=== PATIENT | male | born 1960 | race Caucasian/White ===

== ENCOUNTER 2021-07-30 11:11 | Outpatient (CLI) | payer MEDICARE, MEDICAID, SELFPAY ==
[2021-07-30 16:11] LABS: Basophils Absolute Auto 0.1 K/mm3 (0.0-0.1); Eosinophils Absolute Auto 0.4 K/mm3 (0-0.3); Eosinophils Percent Auto 3.5 % (0-4.4); Hemoglobin 13.9 g/dL (14.0-18.0); Immature Granulocyte Absolute 0.05 K/mm3 (0.00-0.031); Immature Granulocyte Percent A 0.4 % (0-0.5); Lymphocytes Absolute Auto 3.05 K/mm3 (0.9-3.2); Lymphocytes Percent Auto 26.1 % (18.3-44.2); Mean Corpuscular HGB Conc 31.6 g/dl (32-36); Mean Corpuscular Hemoglobin 27.4 pg (26-34); Mean Corpuscular Volume 86.8 fl (80-100); Mean Platelet Volume 11.4 fl (7.4-10.4); Monocytes Absolute Auto 1.2 K/mm3 (0.1-0.6); Monocytes Percent Auto 9.9 % (2.6-8.5); Neutrophils Absolute Auto 6.9 K/mm3 (1.3-6.7); Neutrophils Percent Auto 59.1 % (45.5-73.1); Platelet Count Result 330 k/mm3 (150-375); Red Blood Count 5.07 M/mm3 (4.6-6.20); Red Cell Distribution Width 14.1 % (11.5-14.5); White Blood Count 11.7 K/mm3 (4.5-10.0)
[2021-07-30 16:19] LABS: Alanine Aminotransferase 23 U/L (4-50); Albumin Level 4.5 g/dL (3.5-5.1); Alkaline Phosphatase 75 U/L (38-126); Anion Gap 11 mmol/L (8-16); Aspartate Amino Transferase 59 U/L (17-59); Bilirubin,Total 0.5 mg/dL (0.2-1.3); Blood Urea Nitrogen 19 mg/dL (9-20); Calcium 9.4 mg/dL (8.4-10.2); Carbon Dioxide 23 mmol/L (22-30); Chloride 103 mmol/L (98-107); Estimated Glomerular Filt Rate > 60; Glucose 194 mg/dL (65-110); Potassium 4.1 mmol/L (3.4-5.0); Sodium 137 mmol/L (137-145)
[2021-08-02 05:29] LABS: Triiodothyronine T3 Free 3.2 pg/mL (2.3-4.2)
== END 2021-07-30 11:12 | disposition home or self-care (01) ==
LOC: ANHWCLAB 11:15
PROVIDERS: PCP Family Medicine; Visit Provider Internal Medicine Endocrinology, Diabetes & Metabolism
DX: E11.9 Type 2 diabetes mellitus without complications (principal); E05.90 Thyrotoxicosis, unspecified without thyrotoxic crisis or storm; E04.9 Nontoxic goiter, unspecified
CPT/HCPCS: 36415; 80053; 84439; 84443; 84481; 85025

== ENCOUNTER 2022-07-01 14:43 | Observation (INO) | payer MEDICARE, MEDICAID, SELFPAY ==
[2022-07-01] VITALS (19 sets, daily range): BP systolic 109–150; BP diastolic 75–113; PULSE 61–188; RESP 10–21; TEMP 36.1–36.4; O2SAT 98–100; BMI 26.8
--- NOTE | ~2022-07-01 | XR_ITS ---
EXAMINATION: XR chest 2V DATE: 07/01/2022 15:30 INDICATION: Chest pain TECHNIQUE: PA and lateral views of the chest are obtained. COMPARISON: 01/29/2004 FINDINGS: The lungs are free of acute opacities. No pleural effusion or pneumothorax. The cardiomedia stinal silhouette is normal. There is moderate thoracic spondylosis. IMPRESSION: 1. No acute cardiopulmonary abnormality. Reviewed, dictated and finalized at location B. ATIONS OFFICER AFLOAT
--- NOTE | 2022-07-01 14:45 | ECG_ITS ---
Measurements Intervals [place] Rate: 188 P: [place]: 0 QRS: -61 QRSD: 92 T: 110 QT: 238 QTc: 421 Interpretive Statements ATRIAL FIBRILLATION WITH RAPID VENTRICULAR RESPONSE WITH ABERRANT CONDUCTION OR VENTRICULAR PREMATURE COMPLEXES LEFT ANTERIOR FASCICULAR BLOCK [QRS AXIS <= -45, QR IN I, RS IN II] NO PREVIOUS ECG AVAILABLE FOR COMPARISON Electronically Signed On 07-01-2022 15:40:22 STEEL FITTER by Mesfin Franklin M.D.
[2022-07-01 15:06] LABS: Basophils Absolute Auto 0.2 K/mm3 (0.0-0.1); Eosinophils Absolute Auto 0.3 K/mm3 (0-0.3); Eosinophils Percent Auto 2.2 % (0-4.4); Hematocrit 50.2 % (42.0-52.0); Hemoglobin 16.2 g/dL (14.0-18.0); Immature Granulocyte Absolute 0.07 K/mm3 (0.00-0.031); Immature Granulocyte Percent A 0.4 % (0-0.5); Lymphocytes Absolute Auto 4.36 K/mm3 (0.9-3.2); Lymphocytes Percent Auto 27.7 % (18.3-44.2); Mean Corpuscular HGB Conc 32.3 g/dl (32-36); Mean Corpuscular Hemoglobin 27.3 pg (26-34); Mean Corpuscular Volume 84.7 fl (80-100); Mean Platelet Volume 10.6 fl (7.4-10.4); Monocytes Absolute Auto 1.4 K/mm3 (0.1-0.6); Monocytes Percent Auto 9.1 % (2.6-8.5); Neutrophils Absolute Auto 9.4 K/mm3 (1.3-6.7); Neutrophils Percent Auto 59.6 % (45.5-73.1); Platelet Count Result 389 k/mm3 (150-375); Red Blood Count 5.93 M/mm3 (4.6-6.20); White Blood Count 15.8 K/mm3 (4.5-10.0)
[2022-07-01] MEDS: METOPROLOL TARTRATE INJ 5 MG/5 ML VIAL IV PUSH (15:09)
[2022-07-01] MEDS: ASPIRIN 81 MG CHEWABLE TABLET 324 MG PO (15:10)
--- NOTE | 2022-07-01 15:13 | ECG_ITS ---
Measurements Intervals [place] Rate: 95 P: 45 IA: 162 QRS: -56 QRSD: 106 T: 35 QT: 323 QTc: 406 Interpretive Statements SINUS RHYTHM WITH FREQUENT VENTRICULAR PREMATURE COMPLEXES LEFT ANTERIOR FASCICULAR BLOCK [QRS AXIS <= -45, QR IN I, RS IN II] MINIMAL VOLTAGE CRITERIA FOR LVH, CONSIDER NORMAL VARIANT [MEETS CRITERIA IN ONE OF: R(aVL), S(V1), R(V5), R(V5/V6)+S(V1)] COMPARED TO ECG 07/01/2022 14:50:55 SINUS RHYTHM NOW PRESENT Electronically Signed On 07-01-2022 15:40:43 ENTERTAINMENT DIRECTOR by Mesfin Franklin M.D.
[2022-07-01 15:16] LABS: Alanine Aminotransferase 29 U/L (6-50); Alkaline Phosphatase 100 U/L (38-126); Anion Gap 11 mmol/L (8-16); Aspartate Amino Transferase 28 U/L (17-59); Bilirubin,Total 0.6 mg/dL (0.2-1.3); Blood Urea Nitrogen 17 mg/dL (9-20); Calcium 9.6 mg/dL (8.4-10.2); Carbon Dioxide 24 mmol/L (22-30); Chloride 99 mmol/L (98-107); Estimated CRCL calculation 103 ml/min; Estimated Glomerular Filt Rate > 60; Glucose 338 mg/dL (65-110); Lipase 41 U/L (23-300); Potassium 3.9 mmol/L (3.4-5.0); Sodium 134 mmol/L (137-145)
[2022-07-01 15:17] LABS: Prothrombin Time 12.4 Seconds (11.1-14.7)
[2022-07-01] MEDS: SODIUM CHLORIDE 0.9% IV 1,000 ML 999 ML IV CONT (15:17)
[2022-07-01 15:18] LABS: Partial Thromboplastin Time 24.6 SECONDS (22.3-36.8)
[2022-07-01 15:27] LABS: Troponin I < 0.012 ng/mL (0.000-0.034)
[2022-07-01] MEDS: METOPROLOL TARTRATE 25 MG TABLET PO ×2 (15:32→22:33)
--- NOTE | 2022-07-01 15:40 | ED.GENADULT ---
HPI - General Adult General Chief complaint: Chest Pain Stated complaint: cp, sob Time Seen by Provider: 07/01/22 15:01 History of Present Illness HPI narrative: 61-year-old male presented to the emergency department for evaluation of rapid heart rate. Patient states since approximately 10 AM he has been having increased frequency of rapid heart rate with associated sensation of fluttering in his chest. Patient states this does happen intermittently. Patient states that it used to happen a few times a week but over the course of the last 2 weeks has been happening more frequently. Patient states since 10 AM this morning and its been even more frequent. Patient denies any chest pain but does have some dizziness and lightheadedness when the episodes occurred. Related Data Home Medications Medication Instructions Recorded Confirmed omeprazole 20 mg tablet,delayed 20 mg PO DAILY 01/01/20 07/30/21 release Allergies Allergy/AdvReac Type Severity Reaction Status Date / Time amitriptyline Allergy Intermediate BELLIGERENT Verified 01/27/22 08:01 nortriptyline Allergy Intermediate BELLIGERENT Verified 01/27/22 08:01 Review of Systems Review of Systems: CONSTITUTIONAL: Denies fever, chills, or sweats. EYES: Denies visual changes, redness, or discharge. ENT: Denies rhinorrhea, congestion, sore throat, or otalgia. CARDIOVASCULAR: See HPI RESPIRATORY: Denies cough or dyspnea. GASTROINTESTINAL: Denies abdominal pain, nausea, vomiting, or diarrhea. GENITOURINARY: Denies dysuria or hematuria. SKIN: Denies rash or itching. MUSCULOSKELETAL: Denies back pain, joint pain, or myalgia. NEUROLOGIC: Denies headache, numbness, or weakness. [facility] Past Medical History Medical History (Updated 07/01/22 @ 19:46 by Mejia Bowie MD) Benign prostatic hyperplasia Gastroesophageal reflux disease Hyperlipidemia Hyperthyroidism Osteomyelitis of right leg (01/2004) Right thyroid nodule (05/2021) Type 2 diabetes mellitus Surgical History Surgical History (Updated 07/01/22 @ 16:03 by Alma Lemus PA-C) History of facial surgery For reconstructive surgeries on the face. History of hand surgery (1988) Right hand surgery. History of open reduction and internal fixation (ORIF) procedure (12/08/03) Right bimalleolar fracture with revision. Family History Family History Grandparent Family history of lung cancer Family history of coronary artery disease Mother Family history of thyroid disease Sibling Family history of malignant neoplasm of cervix Family history of primary malignant neoplasm of liver Father No problems noted. Social History Social History (Updated 07/01/22 @ 18:13 by Alma Lemus PA-C) Social History: Surrogate medical decision maker: Radha Still, spouse. Code status: Full code. Smoking status: Never smoker Second hand tobacco smoke exposure: No Alcohol intake: never Substance use: current Substance use type: marijuana Living arrangements: with family Additional living arrangements comments: Patient lives in [place] with his , son, and daughter. Occupation/Education: retired Additional occupation/education comments: Retired from the [employer]. Exam Narrative: APPEARANCE: Well appearing, no pain, no distress, well-nourished. HEAD: normocephalic, atraumatic. EYES: PERRLA/EOMI, conjunctivae clear. NOSE: Normal no drainage NECK: Supple. No adenopathy, no masses. RESPIRATORY: Airway patent, respirations nonlabored. Clear to auscultation bilaterally, no rales, rhonchi, wheezing. CARDIOVASCULAR: Tachycardia ABDOMINAL: Soft, nontender, nondistended, normal bowel sounds MUSCULOSKELETAL: Moves all extremities. Strength/ROM intact, No edema, No calf tenderness. NEURO: Alert. Cranial nerves II through XII intact. Good gait. Good coordination SKIN: Warm, dry. Normal Color Course Course Emergency Course: Up
[2022-07-01 16:22] LABS: Influenza A QL RT-PCR Negative (Negative); Influenza B QL RT-PCR Negative (Negative); SARS-CoV-2 RNA PCR Negative
[2022-07-01 16:33] LABS: Hemoglobin A1C 10.4 % (<5.7)
[2022-07-01 17:33] LABS: Free T4 Free Thyroxine 1.21 ng/mL (0.78-2.19)
--- NOTE | 2022-07-01 18:00 | PM.IMHP ---
H&P: HPI History of Present Illness Date/Time: 07/01/22 18:00 Chief Complaint: Shortness of breath. Narrative: This is a very pleasant 61-year-old male with hypertension, type 2 diabetes, gastroesophageal reflux disease, benign prostatic hyperplasia, and hyperthyroidism who presented to the emergency department from home for evaluation of shortness of breath. Patient provides the following history. Over the years he has experienced intermittent, self-limiting sensations of racing heart and palpitations which 10 to last between 15 and 60 minutes before resolving with rest. These episodes have become more frequent over the past 2 weeks. This morning he once again had palpitations and feelings of racing heart associated with mild shortness of breath, dizziness, and sweats. He lay down for about an hour, it did not go away, and he decided to come in for evaluation. On arrival to the emergency department was found to be in atrial fibrillation with rapid ventricular response which is a new diagnosis for him. He was started on a diltiazem drip and converted to a sinus rhythm with frequent ectopy. He has since been started on metoprolol 25 mg b.i.d.. He has no current complaints, tells me he feels great, and he is ready to go home. Again he has no known history of atrial fibrillation. He states compliance with his methimazole for hyperthyroidism. He denies alcohol use. He does drink quite a bit of caffeinated diet soda each day. No history of sleep apnea although his reports that he does snore pretty heavily. He has not had exertional chest pain. No syncope or near syncope. Review of Systems Review of Systems: Twelve systems were reviewed. No recent cold or flu symptoms. No fever, chills, or sweats. No neurologic symptoms. Except as documented, all other systems were reviewed and are negative. [facility] Past Medical History Medical History Benign prostatic hyperplasia Gastroesophageal reflux disease Hyperlipidemia Hyperthyroidism Osteomyelitis of right leg (01/2004) Right thyroid nodule (05/2021) Type 2 diabetes mellitus Surgical History Surgical History History of facial surgery For reconstructive surgeries on the face. History of hand surgery (1988) Right hand surgery. History of open reduction and internal fixation (ORIF) procedure (12/08/03) Right bimalleolar fracture with revision. Family History Family History Grandparent Family history of lung cancer Family history of coronary artery disease Mother Family history of thyroid disease Sibling Family history of malignant neoplasm of cervix Family history of primary malignant neoplasm of liver Father No problems noted. Social History Social History Social History: Surrogate medical decision maker: Radha Calleas, spouse. Code status: Full code. Smoking status: Never smoker Second hand tobacco smoke exposure: No Alcohol intake: former Substance use: current Substance use type: marijuana Lack of Transportation: No Lack of Food: Never True Current Housing: I Have Housing Concerned About Future Housing: No Difficulty Paying Gas/Electric Bills: No Difficulty Paying for Meds: No Currently Unemployed: No Education: High School Diploma/GED Difficulty w/ Childcare or Family Care: No Living arrangements: with family Additional living arrangements comments: Patient lives in [place] with his , son, and daughter. Occupation/Education: retired Additional occupation/education comments: Retired from the [employer]. Spiritual care concerns: No Meds Home Medications and Allergies Home Medications Medication Instructions Recorded Confirmed Type omeprazole 20 mg tablet,delayed 20 mg PO DAILY 01/01/20
[2022-07-01 19:50] LABS: Troponin I < 0.012 ng/mL (0.000-0.034)
--- NOTE | 2022-07-01 20:50 | PC.NURSE ---
This patient, Corey Still, was admitted to IMU Room 209-01. Patient/family oriented to hospital policies and general routines including ID bracelet, bed and alarms, visiting hours, pain management, procedures, bathroom and other care routines, personal items, smoking policy, room service/diet, and visiting hours. Information on how to activate the Rapid Response Team has been discussed. Patient/Family are encouraged to report perceived risks to care and to ask questions if they do not understand what they are told or what they should do.
[2022-07-01 21:09] LABS: Glucose Point of Care 208 mg/dl (65-105)
[2022-07-01] MEDS: ENOXAPARIN 100 MG/ML SYRINGE 90 MG SUB-Q (22:32)
[2022-07-01] MEDS: carisoprodoL (*CRX) 350 MG TABLET PO (22:33)
[2022-07-01] MEDS: traZODone HCL 50 MG TABLET 100 MG PO (22:33)
[2022-07-01] MEDS: HYDROcodone/acetaminophen (*CRX) 10-325 MG TABLET 1 TAB PO (22:33)
[2022-07-01 22:34] LABS: Troponin I < 0.012 ng/mL (0.000-0.034)
[2022-07-02] VITALS (11 sets, daily range): BP systolic 124–135; BP diastolic 70–96; PULSE 53–66; RESP 16–20; TEMP 36.2–36.6; O2SAT 98–100
[2022-07-02 05:47] LABS: Anion Gap 4 mmol/L (8-16); Blood Urea Nitrogen 15 mg/dL (9-20); Calcium 8.4 mg/dL (8.4-10.2); Carbon Dioxide 26 mmol/L (22-30); Chloride 102 mmol/L (98-107); Estimated CRCL calculation 119 ml/min; Estimated Glomerular Filt Rate > 60; Glucose 203 mg/dL (65-110); Magnesium 1.6 mg/dL (1.6-2.3); Potassium 3.8 mmol/L (3.4-5.0); Sodium 132 mmol/L (137-145)
[2022-07-02 07:48] LABS: Glucose Point of Care 224 mg/dl (65-105)
[2022-07-02] MEDS: PERFLUTREN LIPID MICROSPHERES 1.5 ML VIAL DILUTED TO 10 ML TOTAL VOLUME IV PUSH (08:43)
--- NOTE | 2022-07-02 08:43 | IVDEFINITY ---
Prior to administration of IV Definity the patient was educated on the risks and benefits of the imaging enhancing agent including potential adverse side effects. The patient verbalized understanding. Allergies were verified. No exclusion criteria were identified and at least one of the following inclusion criteria were met: 1) physician request, 2) patient technically difficult to image (per the [place] [employer] Echocardi[employer] guidelines of two or more segments not discernable within the apical view), or 3) questionable left ventricular function. ?
[2022-07-02] MEDS: INSULIN ASPART (*BKC) 100 UNITS/ML SUB-Q ×2 (08:54→12:06)
[2022-07-02] MEDS: TAMSULOSIN HCL 0.4 MG CAPSULE PO (08:55)
[2022-07-02] MEDS: PANTOPRAZOLE 40 MG TABLET PO (08:56)
[2022-07-02] MEDS: lisinopriL 10 MG TABLET PO (08:56)
[2022-07-02] MEDS: metFORMIN HCL XR 500 MG TAB.SR.24H PO ×2 (08:56→12:05)
[2022-07-02] MEDS: METOPROLOL TARTRATE 25 MG TABLET PO (08:56)
[2022-07-02] MEDS: GLIMEPIRIDE 2 MG TABLET 4 MG PO (08:57)
[2022-07-02] MEDS: ENOXAPARIN 100 MG/ML SYRINGE 90 MG SUB-Q (08:57)
[2022-07-02] MEDS: methiMAzole 10 MG TAB PO (08:58)
--- NOTE | 2022-07-02 09:18 | PM.IMPN ---
Progress Note: A&P Assessment and Plan (1) Atrial fibrillation with rapid ventricular response: Code(s): I48.91 - Unspecified atrial fibrillation Status: Acute (2) Hyperthyroidism: Code(s): E05.90 - Thyrotoxicosis, unspecified without thyrotoxic crisis or storm Status: Acute (3) Type 2 diabetes mellitus with hyperglycemia: Code(s): E11.65 - Type 2 diabetes mellitus with hyperglycemia Status: Acute (4) Hypertension: Code(s): I10 - Essential (primary) hypertension Status: Acute Plan The patient presented to the emergency department from home for evaluation of sensations of racing heart, mild shortness of breath, and dizziness since 10:00 as per HPI. Received cardizem drip. He has been transitioned to metoprolol tartrate 25 mg q.12 hours. history of hyperthyroidism, TSH wnl. Echocardiogram unremarkable . Chads Vasc 2 score is high start xeralto 20 mg daily po Cardiology has been consulted and their input is appreciated. continue metoprolol succinate 50 mg daily -- CHADS2 Vasc score is 2; recommend anticoagulation -- start Xarelto 20 mg daily -- okay for discharge from cardiolgoist -- outpatient follow-up -- outpatient stress Cardiolite to evaluate for underlying CAD Subjective Date/time seen: 07/02/22 09:18 Patient feels comfortable, denies chest pain, shortness of breath, palpitation Review of Systems Review of Systems: All systems reviewed & are unremarkable except as noted in HPI and below Exam Narrative: General: Well-developed nontoxic-appearing male sitting up in bed no distress. Weight: 90.9 kg. BMI: 27.2. HEENT: Normocephalic, atraumatic. PERRL, EOMI. Sclera anicteric. Oral mucosa moist. Oropharynx clear. Neck: Supple. Small right thyroid nodule. Respiratory: Lungs are clear to auscultation bilaterally. Cardiovascular: Regular rhythm no significant murmur. Telemetry shows sinus rhythm Gastrointestinal: Abdomen is soft, nontender, and nondistended with positive bowel sounds. Skin: Warm and dry. No rash or lesions on limited exam. Extremities: No cyanosis, clubbing, or edema. Radial and pedal pulses intact. Neurological: Alert. Cranial nerves 2-12 are grossly intact. No gross focal deficits to casual conversation. Psychiatric: Pleasant and cooperative with normal mood and affect. Judgment and insight intact. Objective Data Vital Signs Vital Signs: Vital Signs - 24 hr 07/01/22 14:56 07/01/22 15:03 07/01/22 15:09 Temperature 97.0 F L Pulse Rate 186 H 188 H 188 H Respiratory Rate 14 Blood Pressure 139/78 Pulse Oximetry 99 Oxygen Delivery Room Air 07/01/22 15:14 07/01/22 15:32 07/01/22 15:32 Temperature Pulse Rate 108 H 115 H 105 H Respiratory Rate 13 15 Blood Pressure 146/87 H 150/85 H Pulse Oximetry 100 99 Oxygen Delivery 07/01/22 16:31 07/01/22 19:03 07/01/22 19:01 Temperature Pulse Rate 90 87 99 Respiratory Rate 18 12 13 Blood Pressure 118/75 109/84 Pulse Oximetry 99 100 99 Oxygen Delivery 07/01/22 19:02 07/01/22 19:15 07/01/22 19:30 Temperature Pulse Rate 104 H 82 94 Respiratory Rate 18 21 H 19 Blood Pressure 109/84 Pulse Oximetry 99 99 Oxygen Delivery 07/01/22 19:31 07/01/22 19:46 07/01/22 20:02 Temperature Pulse Rate 90 85 62 Respiratory Rate 15 12 10 L Blood Pressure 149/113 H Pulse Oximetry 100 99 99 Oxygen Delivery 07/01/22 20:16 07/01/22 20:57 07/01/22 22:33 Temperature 97.6 F Pulse Rate 69 66 61 Respiratory Rate 13 16 Blood Pressure 142/85 H Pulse Oximetry 99 Oxygen Delivery 07/01/22 22:00 07/02/22 00:00 07/02/22 00:00 Temperature Pulse Rate 66 58 L 58 L Respiratory Rate 16 Blood Pressure Pulse Oximetry 99 Oxygen Delivery Room Air 07/02/22 00:00 07/02/22 02:00 07/02/22 04:00 Temperature 97.4 F L Pulse Rate 61 55 L 53 L Respiratory Rate 16 Blood Pressure 124/70 Pulse Oximetry 100 Oxygen Del
[2022-07-02 12:07] LABS: Glucose Point of Care 300 mg/dl (65-105)
--- NOTE | 2022-07-02 14:09 | PM.CNCAR ---
Assessment and Plan Assessment and plan (1) Paroxysmal atrial fibrillation: Code(s): I48.0 - Paroxysmal atrial fibrillation Status: Acute Assessment and Plan: Patient with symptoms of paroxysmal AFib for the last 2 years, associated with lightheadedness shortness of breath and some chest discomfort. Normal LV function. Treated thyroid disease. No alcohol use. No apparent RICARDO. -- Seemed to respond very well to metoprolol; continue metoprolol succinate 50 mg daily -- CHADS2 Vasc score is 2; recommend anticoagulation -- start Xarelto 20 mg daily -- okay for discharge from my point of view -- outpatient follow-up -- outpatient stress Cardiolite to evaluate for underlying CAD (2) Chest discomfort: Code(s): R07.89 - Other chest pain Status: Acute Assessment and Plan: Patient has anginal symptoms when he is in AFib RVR. His AFib seems to be provoked with exertion. He has risk factors for CAD. --troponins were negative but I am suspicious of underlying CAD --a coronary CTA done in January 2016 showed a coronary calcium score 55, EF 67%, and mild atherosclerotic disease involving the left anterior descending and RCA. --outpatient stress test --consider adding a statin because of his diabetes and other coronary risk factors. (3) Type 2 diabetes mellitus with hyperglycemia: Code(s): E11.65 - Type 2 diabetes mellitus with hyperglycemia Status: Acute Assessment and Plan: Probably not well controlled; patient does not feel well when his blood sugar is 100 and also is partial to chocolate. -- Encourage good diabetic control (4) Hypertension: Code(s): I10 - Essential (primary) hypertension Status: Acute Assessment and Plan: reasonably controlled, running on the high side here at times. -- Continue lisinopril, metoprolol added History of Present Illness History of Present Illness Consult date/time: 07/02/22 14:09 Reason For Visit: a fib Narrative: Corey Still 61-year-old male whom I was asked to see at the request of Dr. Mejia Bowie for my advice and opinion regarding his new onset of AFib RVR, in consultation. He has a history of hypertension, hyperlipidemia and diabetes. The patient has had a history of intermittent palpitations ?like birds or fluttering often my chest? for 2 or 3 years. These often occur with exertion such as walking or pushing himself hard. He will feel racing heartbeats, sometimes dizziness, sometimes SOB and sometimes little chest pressure and squeezing. Sometimes the shortness of breath and chest discomfort/palpitations ?took him to his knees. The spells tend to resolve if he lies down and rests for an hour. At other times he can exert with no problems. Yesterday after taking out the trash he felt significant palpitations, shortness of breath, chest discomfort and gas. However this time they do not resolve. He could hardly walk to the house with a getting short of breath. He came to the emergency room is found to be in AFib RVR rate 188. After 1 dose of IV Lopressor, he converted to sinus tachycardia with frequent APCs and PVCs and subsequently has remained in sinus rhythm. His , who is a nurse, has been suspicious that he has coronary disease and has urged him to see a physician for long time. No known sleep apnea. No alcohol use. Treated thyroid disease. No family history of premature CAD or a arrhythmias. Coronary calcium score was 55 in 2018. Review of Systems Constitutional: Constitutional: Denies fever(s) Eyes: Comments: History of eye injury and visual problems ENT: Denies epistaxis Cardiovascular: Cardiovascular: Reports chest pain, Denies pedal edema, Reports lightheadedness, Reports palpitations and Reports dyspnea Respiratory: Respiratory: Denies chest congestion and Denies dyspnea Comments: Except SUBRAMANIAN when he has his palpitations Gastrointestinal: Gastrointestinal: Denies abdomina
--- NOTE | 2022-07-02 15:52 | PM.DS ---
DS: Admitting Diagnosis Discharge Date today Admitting Diagnosis afib RVR DS: Discharge Diagnosis Discharge Diagnosis (1) Paroxysmal atrial fibrillation: Code(s): I48.0 - Paroxysmal atrial fibrillation Status: Acute (2) Type 2 diabetes mellitus with hyperglycemia: Code(s): E11.65 - Type 2 diabetes mellitus with hyperglycemia Status: Acute (3) Atrial fibrillation with rapid ventricular response: Code(s): I48.91 - Unspecified atrial fibrillation Status: Acute (4) Hyperthyroidism: Code(s): E05.90 - Thyrotoxicosis, unspecified without thyrotoxic crisis or storm Status: Acute (5) Type 2 diabetes mellitus: Code(s): E11.9 - Type 2 diabetes mellitus without complications Status: Acute (6) Overweight with body mass index (BMI) of 28 to 28.9 in adult: Code(s): E66.3 - Overweight; Z68.28 - Body mass index [BMI] 28.0-28.9, adult Status: Acute (7) Hypertension: Code(s): I10 - Essential (primary) hypertension Status: Acute DS: Summary Hospital Course Reason for hospitalization: Afib RVR Hospital Course: This is a very pleasant 61-year-old male with hypertension, type 2 diabetes, gastroesophageal reflux disease, benign prostatic hyperplasia, and hyperthyroidism who presented to the emergency department from home for evaluation of shortness of breath. Patient provides the following history. Over the years he has experienced intermittent, self-limiting sensations of racing heart and palpitations which 10 to last between 15 and 60 minutes before resolving with rest. These episodes have become more frequent over the past 2 weeks. This morning he once again had palpitations and feelings of racing heart associated with mild shortness of breath, dizziness, and sweats. He lay down for about an hour, it did not go away, and he decided to come in for evaluation. On arrival to the emergency department was found to be in atrial fibrillation with rapid ventricular response which is a new diagnosis for him. He was started on a diltiazem drip and converted to a sinus rhythm with frequent ectopy. He has since been started on metoprolol 25 mg b.i.d.. He has no current complaints, tells me he feels great, and he is ready to go home. Again he has no known history of atrial fibrillation.? He states compliance with his methimazole for hyperthyroidism. He denies alcohol use.? He does drink quite a bit of caffeinated diet soda each day. No history of sleep apnea although his reports that he does snore pretty heavily. He has not had exertional chest pain.? No syncope or near syncope. During hospitalization, AFib is converted to sinus rhythm. Cardizem was stopped, patient was started on metoprolol succinate 50 mg daily p.o. patient was also given Xarelto 20 mg daily p.o. per competitive intelligence manager. Echocardiogram unremarkable. TSH within normal limit. Neurosurgical Nurse will follow patient in office for CAD workup. Patient will be discharged home today, and continue rest of home medications. Status at Discharge Cognitive/behavioral status at discharge: Stable Time Spent with Patient Time attestation: Total time spent providing and/or coordinating discharge services: DS: Data Data Completed and Pending Labs on day of discharge: Labs from last 24 hours 07/02/22 07/02/22 07/02/22 11:29 07:40 05:02 Sodium 132 L Potassium 3.8 Chloride 102 Carbon Dioxide 26 Anion Gap 4 L BUN 15 Creatinine 0.60 L Estim Creat Clear Calc 119 Estimated GFR > 60 Glucose 203 H POC Capillary Glucose 300 H 224 H Hemoglobin A1c Calcium 8.4 Magnesium 1.6 Troponin I TSH TSH (Reflex) Free T4 Free T3 Influenza A (RT-PCR) Influenza B (RT-PCR) SARS-CoV-2 RNA (RT-PCR) 07/01/22 07/01/22 07/01/22 22:07 21:06 19:22 Sodium Potassium Chloride Carbon Dioxide Anion Gap BUN Creatinine Estim Creat Clear Calc Estim
--- NOTE | 2022-07-02 18:26 | ECHO_ITS ---
Patient Info Name: Corey Still Age: 61 years : 1960 Gender: Male Ht: 72 in Wt: 200 lbs BSA: 2.16 m2 HR: 62 bpm BP: 135 / 86 mmHg Heart Rhythm: Sinus Rhythm Exam Date: 07/02/2022 8:19 AM Exam Location: [facility] Patient Status: Inpatient Admit Date: 07/01/2022 Staff Ordering Physician: Alma Lemus PA-C Information Technology Intern: Osvaldo De La Cruz RDCS, RT Attending Provider: Suni Veronica MD Referring Physician: Allan ROCK; Exam Type: CA echo doppler color flow Study Info Indications - Afib with RVR Strain analysis performed. Complete two-dimensional, color flow and Doppler transthoracic echocardiogram is performed with contrast to opacify the left ventricle and to improve the deliniation of the left ventricle endocardial borders. Summary 1. Left ventricular chamber dimension is normal. 2. Left ventricular systolic function is normal, estimated at 60-65%. 3. There is mildly increased left ventricular wall thickness. 4. Right ventricular systolic function is normal. 5. There is trace mitral valve regurgitation. 6. There is trace tricuspid valve regurgitation. Left Ventricle Left ventricular chamber dimension is normal. Left ventricular systolic function is normal, estimated at 60-65%. There is mildly increased left ventricular wall thickness. Right Ventricle Right ventricular chamber dimension is normal. Right ventricular systolic function is normal. Left Atria Left atrial chamber dimension is normal. Right Atria Right atrial chamber dimension is normal. Atrial Septum Intact interatrial septum visualized by color flow imaging. Aortic Valve The aortic valve is not well visualized. There is mild aortic valve sclerosis. There is no aortic valve stenosis. There is no aortic valve regurgitation. Pulmonic Valve The pulmonic valve is not well visualized. Mitral Valve The mitral valve has thickened leaflets. There is no mitral valve stenosis. There is trace mitral valve regurgitation. Tricuspid Valve There is trace tricuspid valve regurgitation. Pericardium/Pleural There is no pericardial effusion. Inferior Vena Cava Dilated inferior vena cava with <50% collapse upon inspiration consistent with elevated right atrial pressure. Aorta The aortic root size at the sinus of Valsalva is normal. Left Ventricular Outflow Tract Name Value Normal LVOT Doppler LVOT Peak Gradient 3 mmHg LVOT Mean Gradient 1 mmHg LVOT VTI 19 cm LVOT VTI/AV VTI Ratio 0.8 Mitral Valve Name Value Normal MV Doppler MV Decel [place] 300 cm/s2 MV PHT 65 ms MV Area (PHT) 3.4 cm2 4.0-5.0 MV Diastolic Function MV E Peak Velocity 67 cm/s
[2022-07-06 14:29] LABS: Triiodothyronine T3 Free 2.8 pg/mL (2.3-4.2)
== END 2022-07-02 16:46 | disposition home or self-care (01) ==
LOC: ANHED 15:54 → ANHIMU 17:45
PROVIDERS: Emergency Medicine; Physician Assistant; Admitting Provider Hospitalist; Emergency Provider Emergency Medicine; PCP Family Medicine; Visit Provider Hospitalist
DX: I48.0 Paroxysmal atrial fibrillation (principal); R07.89 Other chest pain; E05.90 Thyrotoxicosis, unspecified without thyrotoxic crisis or storm; I10 Essential (primary) hypertension; E11.65 Type 2 diabetes mellitus with hyperglycemia; K21.9 Gastro-esophageal reflux disease without esophagitis; N40.0 Benign prostatic hyperplasia without lower urinary tract symptoms; E66.3 Overweight; Z68.28 Body mass index [BMI] 28.0-28.9, adult; Z20.822 Contact with and (suspected) exposure to COVID-19
CPT/HCPCS: 36415; 71046; 80048; 80053; 82948; 83036; 83690; 83735; 84439; 84443; 84481; 84484; 85025; 85610; 85730; 87636; 93005; 93306; 94762; 96361; 96372; 96374; 96375; 99285; A9270; G0378; J1650; J1815; J7030; Q9957

== ENCOUNTER 2022-07-17 10:45 | Outpatient (CLI) | payer MEDICARE, MEDICAID, SELFPAY ==
[2022-07-17 11:24] LABS: Creatinine Urine 45.2 mg/dL
[2022-07-17 11:27] LABS: Anion Gap 6 mmol/L (8-16); Blood Urea Nitrogen 17 mg/dL (9-20); Calcium 9.6 mg/dL (8.4-10.2); Carbon Dioxide 28 mmol/L (22-30); Chloride 99 mmol/L (98-107); Estimated Glomerular Filt Rate > 60; Glucose 198 mg/dL (65-110); Potassium 3.9 mmol/L (3.4-5.0); Sodium 133 mmol/L (137-145)
[2022-07-17 11:29] LABS: MALB Creatinine Ratio 105.3 mg/g (0-30); Microalbumin Urine Random 47.6 mg/L (0-16.7)
== END 2022-07-17 10:46 | disposition home or self-care (01) ==
PROVIDERS: PCP Family Medicine; Visit Provider Physician Assistant Medical
DX: E11.65 Type 2 diabetes mellitus with hyperglycemia (principal); E87.1 Hypo-osmolality and hyponatremia
CPT/HCPCS: 36415; 80048; 82043

== ENCOUNTER 2023-04-01 15:32 | Outpatient (CLI) | payer MEDICARE, MEDICAID, SELFPAY ==
--- NOTE | ~2023-04-01 | XR_ITS ---
XR shoulder RT min 2V DATE: 04/01/2023 16:13 INDICATION: Right shoulder pain TECHNIQUE: 4 views COMPARISON: None FINDINGS: There is degenerative spurring at the right acromioclavicular joint. There is mild right hu meral head spurring consistent with glenohumeral osteoarthritis. Diffuse osteopenia. No fracture, dislocation, periosteal reaction or bone destruction or abnormal rig ht shoulder soft tissue calcification is detected. Diffuse idiopathic skeletal hyperostosis of the thoracic spine. IMPRESSION: Degenerative changes of the right acromioclavicular and glenohumeral joints No fracture or dislocation Osteopenia Diffuse idiopathic skeletal hyperostosis of the thoracic spine Reviewed, dictated and finalized at location L. TRICAL ASSEMBLY SUPERVISOR IMPRESSION: Degenerative changes of the right acromioclavicular and glenohumera l joints No fracture or dislocation Osteopenia Diffuse idiopathic skeletal hyperostosis of the thoracic spine
== END 2023-04-01 15:33 ==
PROVIDERS: PCP Family Medicine; Visit Provider Physician Assistant Medical
DX: M48.14 Ankylosing hyperostosis [Forestier], thoracic region (principal); M19.011 Primary osteoarthritis, right shoulder
CPT/HCPCS: 73030

== ENCOUNTER 2023-04-18 09:31 | Outpatient (CLI) | payer MEDICARE, MEDICAID, SELFPAY ==
--- NOTE | ~2023-04-18 | MR_ITS ---
MRI of the right shoulder Technique: Axial proton-density fat-sat images, coronal proton density fat-sat and T2 fat-sat images, and sagittal T1-weighted and T2 fat-sat images were acquired. Clinical History: Pain Findings: Exam mildly degraded by motion artifact. There is advanced AC joint degenerative change. Co racoclavicular, coracoacromial, and coracohumeral ligaments are probably intact. There is complete, full-thickness tear involving the entire supraspinatus tendon, which is retracted to the level of the glenohumeral joint. Fluid-filled gap measures approximately 4.5 x 4.1 cm. There i s severe tendinosis of the distal infraspinatus tendon, without definite high-grade partial or full-t hickness tear. Subscapularis tendon demonstrates extensive full-thickness tearing, with some of the i nferior most fibers possibly remaining intact. Tendon of the long head of the biceps is not visualize d, presumably completely ruptured and retracted distally. There is extensive, near circumferential degenerative labral tearing, probably sparing the inferior l abrum. Humeral head is high riding. Small inferomedial humeral head osteophyte present. There are small jinny ohumeral joint effusion passing through the rotator cuff defect into the subacromial/subdeltoid bursa . There is mild to moderate atrophy of the supraspinatus muscle belly. Inferior glenohumeral ligament is intact. Impression: Complete, full-thickness tear of the supraspinatus tendon, as detailed above. There is associated mod erate atrophy of the supraspinatus muscle belly. Full-thickness tear involving the majority, if not all of the subscapularis tendon, possibly sparing of some of the inferior most fibers. Complete rupture of the proximal tendon of the long head of the biceps, which is retracted distally. High riding humeral head with small humeral head osteophyte. Severe AC joint degenerative change. Near circumferential degenerative labral tearing, sparing the inferior labrum. Reviewed, dictated and finalized at [facility] M. ER SODA WORKER Impression: Complete, full-thickness tear of the supraspinatus tendon, as detailed above. T here is associated moderate atrophy of the supraspinatus muscle belly. Full-thickness tear involving the majority, if not all of the subscapularis ten don, possibly sparing of some of the inferior most fibers. Complete rupture of the proximal tendon of the long head of the biceps, which i s retracted distally. High riding humeral head with small humeral head osteophyte. Severe AC joint degenerative change. Near circumferential degenerative labral tearing, sparing the inferior labrum.
== END 2023-04-18 09:32 | disposition home or self-care (01) ==
PROVIDERS: PCP Family Medicine; Visit Provider Physician Assistant Medical
DX: M19.011 Primary osteoarthritis, right shoulder (principal); M75.121 Complete rotator cuff tear or rupture of right shoulder, not specified as traumatic; S46.111A Strain of muscle, fascia and tendon of long head of biceps, right arm, initial encounter; X58.XXXA Exposure to other specified factors, initial encounter
CPT/HCPCS: 73221

== ENCOUNTER 2024-02-09 09:06 | Outpatient (CLI) | payer MEDICARE, MEDICAID, SELFPAY ==
[2024-02-09 09:38] LABS: Basophils Absolute Auto 0.1 K/mm3 (0.0-0.1); Basophils Percent Auto 0.9 % (0.2-1.2); Eosinophils Absolute Auto 0.4 K/mm3 (0-0.3); Eosinophils Percent Auto 3.5 % (0-4.4); Hematocrit 44.8 % (42.0-52.0); Hemoglobin 14.4 g/dL (14.0-18.0); Immature Granulocyte Absolute 0.08 K/mm3 (0.00-0.031); Immature Granulocyte Percent A 0.7 % (0-0.5); Lymphocytes Absolute Auto 3.01 K/mm3 (0.9-3.2); Lymphocytes Percent Auto 25.5 % (18.3-44.2); Mean Corpuscular HGB Conc 32.1 g/dl (32-36); Mean Corpuscular Hemoglobin 27.3 pg (26-34); Mean Platelet Volume 10.6 fl (7.4-10.4); Monocytes Absolute Auto 1.1 K/mm3 (0.1-0.6); Monocytes Percent Auto 9.5 % (2.6-8.5); Neutrophils Absolute Auto 7.1 K/mm3 (1.3-6.7); Neutrophils Percent Auto 59.9 % (45.5-73.1); Platelet Count Result 310 k/mm3 (150-375); Red Blood Count 5.27 M/mm3 (4.6-6.20); Red Cell Distribution Width 13.9 % (11.5-14.5); White Blood Count 11.8 K/mm3 (4.5-10.0)
[2024-02-09 09:54] LABS: Alanine Aminotransferase 17 U/L (6-50); Albumin Level 4.5 g/dL (3.5-5.1); Alkaline Phosphatase 75 U/L (38-126); Anion Gap 11 mmol/L (4-12); Aspartate Amino Transferase 20 U/L (17-59); Bilirubin,Total 0.5 mg/dL (0.2-1.3); Blood Urea Nitrogen 18 mg/dL (9-20); Calcium 9.3 mg/dL (8.4-10.2); Carbon Dioxide 27 mmol/L (22-30); Chloride 100 mmol/L (98-107); Cholesterol 196 mg/dL (0-200); Estimated Glomerular Filt Rate > 60; Glucose 200 mg/dL (65-110); HDL Direct 27 mg/dL; Potassium 4.2 mmol/L (3.4-5.0); Sodium 138 mmol/L (137-145); Triglycerides 169 mg/dL (<150)
[2024-02-09 10:05] LABS: LDL Cholesterol Direct 138 mg/dL
[2024-02-09 10:06] LABS: Creatinine Urine 140.6 mg/dL
[2024-02-09 10:11] LABS: MALB Creatinine Ratio 24.3 mg/g (0-30); Microalbumin Urine Random 34.2 mg/L (0-16.7)
[2024-02-09 10:25] LABS: Prostate Specific Antigen 1.6 ng/mL (< OR = 4.0)
[2024-02-09 10:41] LABS: Free T4 Free Thyroxine 1.05 ng/mL (0.78-2.19)
[2024-02-09 10:45] LABS: Hemoglobin A1C 10.3 % (<5.7)
== END 2024-02-09 09:07 | disposition home or self-care (01) ==
PROVIDERS: PCP Family Medicine; Visit Provider Nurse Practitioner Adult Health
DX: Z12.5 Encounter for screening for malignant neoplasm of prostate (principal); E05.90 Thyrotoxicosis, unspecified without thyrotoxic crisis or storm; E11.65 Type 2 diabetes mellitus with hyperglycemia; E78.5 Hyperlipidemia, unspecified
CPT/HCPCS: 36415; 80053; 80061; 82043; 83036; 84153; 84439; 84443; 85025; G0103

== ENCOUNTER 2024-03-26 08:42 | Emergency (ER) | payer MEDICARE, MEDICAID, SELFPAY ==
[2024-03-26] VITALS (8 sets, daily range): BP systolic 99–145; BP diastolic 62–105; PULSE 76–125; RESP 13–18; TEMP 36.4–36.6; O2SAT 97–99
--- NOTE | ~2024-03-26 | XR_ITS ---
Portable chest x-ray Comparison: 07/01/2022 Clinical History: Chest pain, atrial fibrillation Findings: Lungs are clear, without focal consolidation or pleural effusion. Cardiomediastinal silho uette is stable. Bones and soft tissues are unremarkable. Impression: Normal chest. Reviewed, dictated and finalized at location . ER RUNNER Impression: Normal chest.
--- NOTE | 2024-03-26 08:43 | ECG_ITS ---
Test Date: 2024-03-26 08:51:51 Measurements Intervals [place] Rate: 105 P: 0 DC: 0 QRS: -60 QRSD: 118 T: 56 QT: 338 QTc: 448 Interpretive Statements ATRIAL FIBRILLATION WITH RAPID VENTRICULAR RESPONSE WITH FREQUENT VENTRICULAR PREMATURE COMPLEXES LEFT ANTERIOR FASCICULAR BLOCK CANNOT R/O SEPTAL INFARCT, AGE INDETERMINATE BASELINE ARTIFACT- I, II, III, AVR, AVL, AVF, V1-V6 ABNORMAL ECG No previous ECG available for comparison Electronically Signed On 03-26-2024 18:32:20 CAN CUTTER by Simone Jenkins D.O.
--- NOTE | 2024-03-26 08:57 | ED_ITS ---
HPI - General Adult General Chief complaint: Chest Pain Stated complaint: chest pain, dizzines Time Seen by Provider: 03/26/24 08:46 History of Present Illness HPI narrative: 63 old male presents emergency department for evaluation for feeling ill over the last few days pain. Patient does have history of coronary disease and AFib. Patient does take Eliquis and metoprolol. Patient reports on Wednesday night he was feeling poorly. Upon arrival emergency department patient is in AFib with RVR. Patient reports shortness of breath but denies any associated chest pain. Related Data Home Medications Medication Instructions Recorded Confirmed multivitamin 1 tablet PO DAILY 12/23/22 02/09/24 Allergies Allergy/AdvReac Type Severity Reaction Status Date / Time amitriptyline Allergy Intermediate BELLIGERENT Verified 03/26/24 08:43 nortriptyline Allergy Intermediate BELLIGERENT Verified 03/26/24 08:43 Review of Systems Review of Systems: All systems reviewed & are unremarkable except as noted in HPI and below PMFSH Past Medical History Medical History Atrial fibrillation Atrial fibrillation with rapid ventricular response Benign prostatic hyperplasia BMI 27.0-27.9,adult Chest discomfort Erectile dysfunction Gastroesophageal reflux disease GERD (gastroesophageal reflux disease) Hyperlipidemia Hypertension Hyperthyroidism Insomnia Osteomyelitis of right leg (01/2004) Paroxysmal atrial fibrillation Rash Right thyroid nodule (05/2021) Screening for colon cancer Type 2 diabetes mellitus Surgical History Surgical History History of facial surgery For reconstructive surgeries on the face. History of hand surgery (1988) Right hand surgery. History of open reduction and internal fixation (ORIF) procedure (12/08/03) Right bimalleolar fracture with revision. Family History Family History Grandparent Family history of lung cancer Family history of coronary artery disease Mother Family history of thyroid disease Sibling Family history of malignant neoplasm of cervix Family history of primary malignant neoplasm of liver Father Heart disease Had a heart attack in his late 70s Social History Social History Social History: Surrogate medical decision maker: Radha Still, spouse. Code status: Full code. Smoking status: Never smoker Second hand tobacco smoke exposure: No Alcohol intake: former Substance use: current Substance use type: marijuana Last use: daily Do You Feel Safe in your Home?: Yes Lack of Transportation: No Lack of Food: Never True Current Housing: I Have Housing Concerned About Future Housing: No Difficulty Paying Gas/Electric Bills: No Difficulty Paying for Meds: No Currently Unemployed: Decline to Answer Education: High School Diploma/GED Difficulty w/ Childcare or Family Care: No Living arrangements: with family Additional living arrangements comments: Patient lives in [place] with his , son, and daughter. Occupation/Education: retired Additional occupation/education comments: Retired from the [employer]. Spiritual care concerns: No Exam Narrative: APPEARANCE: Well appearing, no pain, no distress, well-nourished. HEAD: normocephalic, atraumatic. EYES: PERRLA/EOMI, conjunctivae clear. NOSE: Normal no drainage EARS:TMS clear with good light reflex. THROAT: Pharynx clear, no exudate. NECK: Supple. No adenopathy, no masses. RESPIRATORY: Airway patent, respirations nonlabored. Clear to auscultation bilaterally, no rales, rhonchi, wheezing. CARDIOVASCULAR: Regular rate and rhythm without murmurs rubs or gallops. ABDOMINAL: Soft, nontender, nondistended, normal bowel sounds MUSCULOSKELETAL: Moves all extremities. Strength/ROM intact, No edema, No calf tenderness. NEURO: Alert. Cranial nerves II through XII intact. Good gait. Good coordination SKIN: Warm, dry. Normal Color Course Vital Signs Vital signs: Vital Signs Temperature 97.6 F 03/26/24 08:54 Pulse Rate 125 H 03/26/24 08:54 Respiratory Rate 18 03/26/24 08:54 Blood Pressure 145/105 H 03/26/24 08:54 Pulse Oximetry 99 03/26/24 08:54 Oxygen Delivery Room Air 03/26/24 08:54 Temperature 97.8 F 03/26/24 12:07 Pulse Rate 80 03/26/24 12:07 Respiratory Rate 18 03/26/24 12:07 Blood Pressure 111/80 03/26/24 12:07 Pulse Oximetry 99 03/26/24 12:07 Oxygen Delivery Room Air 03/26/24 08:59 Medical Decision Making MDM Narrative Medical decision making narrative: 63-year-old male presenting to the emergency department for evaluation for chest pressure. Patient was found to be in AFib with RVR. Patient was treated with Cardizem bolus and infusion. Patient is afebrile but does have a leukocytosis of 13.4, hemoglobin of 15.6, patient had negative serial troponins, INR is 1.2. Patient had no abnormalities on his CMP. Patient was negative for influenza RSV and for COVID, patient's x-ray shows no acute cardiopulmonary abnormality. Patient did convert back to normal sinus rhythm and is requesting discharge home. Patient denies any pain or complaints and states he is ready to get on with his day. Patient was strongly encouraged to be compliant with his medications and strongly encouraged close follow-up with his weatherization installer for additional outpatient cardiac testing. Differential Diagnosis Differential Diagnosis: AFib with RVR, pulmonary embolism, ACS, pneumonia, pneumothorax Vital Signs Vital Signs: Vital Signs Temperature 97.6 F 03/26/24 08:54 Pulse Rate 125 H 03/26/24 08:54 Respiratory Rate 18 03/26/24 08:54 Blood Pressure 145/105 H 03/26/24 08:54 Pulse Oximetry 99 03/26/24 08:54 Oxygen Delivery Room Air 03/26/24 08:54 Temperature 97.8 F 03/26/24 12:07 Pulse Rate 80 03/26/24 12:07 Respiratory Rate 18 03/26/24 12:07 Blood Pressure 111/80 03/26/24 12:07 Pulse Oximetry 99 03/26/24 12:07 Oxygen Delivery Room Air 03/26/24 08:59 Lab Data Lab results reviewed: Yes I reviewed the patient's lab results. 03/26/24 09:02 03/26/24 09:02 Labs: Lab Results 03/26/24 03/26/24 03/26/24 Range/Units 09:02 09:04 10:52 WBC 13.4 H (4.5-10.0) K/mm3 RBC 5.65 (4.6-6.20) M/mm3 Hgb 15.6 (14.0-18.0) g/dL Hct 48.6 (42.0-52.0) % MCV 86.0 (80-100) fl MCH 27.6 (26-34) pg MCHC 32.1 (32-36) g/dl RDW 14.3 (11.5-14.5) % Plt Count 412 H (150-375) k/mm3 MPV 10.4 (7.4-10.4) fl Immature Gran % (Auto) 0.3 (0-0.5) % Neut % (Auto) 58.1 (45.5-73.1) % Lymph % (Auto) 27.4 (18.3-44.2) % Dunn % (Auto) 10.9 H (2.6-8.5) % Eos % (Auto) 2.3 (0-4.4) % Baso % (Auto) 1.0 (0.2-1.2) % Lymph # (Auto) 3.67 H (0.9-3.2) K/mm3 Dunn # (Auto) 1.5 H (0.1-0.6) K/mm3 Eos # (Auto) 0.3 (0-0.3) K/mm3 Baso # (Auto) 0.1 (0.0-0.1) K/mm3 Abs Immat Gran (auto) 0.04 H (0.00-0.031) K/mm3 Absolute Neuts (auto) 7.8 H (1.3-6.7) K/mm3 Absolute Nucleated RBC 0.000 (0.0-0.012) K/mm3 Nucleated RBC % 0.0 (0.0-0.2) % PT 15.9 H (11.1-14.7) Seconds INR 1.2 APTT 30.7 (22.3-36.8) Seconds Sodium 140 (137-145) mmol/L Potassium 3.9 (3.4-5.0) mmol/L Chloride 104 (98-107) mmol/L Carbon Dioxide 21 L (22-30) mmol/L Anion Gap 15 H (4-12) mmol/L BUN 17 (9-20) mg/dL Creatinine 0.70 (0.7-1.3) mg/dL Estim Creat Clear Calc 98 ml/min Estimated GFR > 60 (59 - ) Glucose 169 H (65-110) mg/dL Calcium 9.7 (8.4-10.2) mg/dL Magnesium 1.7 (1.6-2.3) mg/dL Total Bilirubin 0.8 (0.2-1.3) mg/dL AST 23 (17-59) U/L ALT 19 (6-50) U/L Alkaline Phosphatase 77 (38-126) U/L Troponin I < 0.012 < 0.012 (0.000-0.034) ng/mL Total Protein 8.0 (6.3-8.2) g/dL Albumin 4.7 (3.5-5.1) g/dL Lipase 34 (23-300) U/L TSH (Reflex) 2.650 (0.465-4.68) uIU/mL Influenza A (RT-PCR) Negative (Negative) Influenza B (RT-PCR) Negative (Negative) RSV (RT-PCR) Negative (Negative) SARS-CoV-2 RNA (RT-PCR) Negative (Negative) Imaging Data Radiologist's impression: Impressions Chest X-Ray 03/26/24 09:43 Impression: Normal chest. ECG Data EKG #1: EKG Interpretation: normal rate, sinus rhythm, no ectopy, non-specific ST changes, normal QRS and NL axis Discharge Plan Discharge Clinical Impression: Atrial fibrillation with rapid ventricular response, Chest pressure Patient Disposition: Home, Self-Care Condition: Stable Instructions: Antibiotic Form, A-fib (Atrial Fibrillation) (ED), Chest Pain (ED) Additional Instructions: You were in atrial fibrillation with rapid ventricular response but did convert back to normal sinus rhythm. Have close follow-up with your weatherization installer for additional outpatient cardiac testing. Be compliant with your home medications. Prescriptions: No Action (DME) blood-glucose meter Kit See Rx Instructions .ROUTE .MEDSUPPLY Qty: 1 0RF Rx Instructions: ACHS (DME) lancets Misc See Rx Instructions .ROUTE .MEDSUPPLY Qty: 100 0RF Rx Instructions: AC HS multivitamin Tablet 1 tablet PO DAILY (DME) lancets [OneTouch Delica Plus Lancet] 33 gauge misc See Rx Instructions .Route Qty: 200 1RF Rx Instructions: check twice a day triamcinolone acetonide 0.1 % cream 1 applic topical TID Qty: 80 0RF Rx Instructions: Apply to affected area's 3x/day for two weeks. Jardiance 25 mg tablet 25 mg PO DAILY Qty: 90 1RF metformin 500 mg tablet extended release 24 hr 1,000 mg PO BID Qty: 360 1RF Rybelsus 7 mg tablet 7 mg PO DAILY Qty: 90 1RF (DME) blood-glucose meter [OneTouch Verio Reflect Meter] Misc See Rx Instructions .Route Qty: 1 0RF Rx Instructions: As directed omeprazole 20 mg capsule,delayed release(DR/EC) See Rx Instructions .ROUTE .COMPLEX Qty: 90 1RF Dose Instruction: TAKE 1 CAPSULE BY MOUTH EVERY DAY Rx Instructions: TAKE 1 CAPSULE BY MOUTH EVERY DAY Xarelto 20 mg tablet 20 mg PO DAILY@1700 Qty: 30 1RF trazodone 100 mg tablet 100 mg PO QHS Qty: 90 1RF metoprolol succinate 50 mg tablet extended release 24 hr 50 mg PO QAM Qty: 90 1RF triamcinolone acetonide 0.5 % cream 1 applic topical BID Qty: 100 0RF tamsulosin 0.4 mg capsule 0.4 mg PO DAILY Qty: 90 1RF Rx Instructions: TAKE 1 CAPSULE BY MOUTH DAILY glimepiride 4 mg tablet See Rx Instructions .ROUTE .COMPLEX Qty: 180 3RF Dose Instruction: TAKE ONE TABLET BY MOUTH TWICE A DAY Rx Instructions: TAKE ONE TABLET BY MOUTH TWICE A DAY (DME) OneTouch Verio test strips Strip See Rx Instructions .Route Qty: 300 1RF Rx Instructions: check sugar three times a day carisoprodol [Soma] 350 mg tablet 350 mg PO QID PRN (Reason: muscle pain) Qty: 120 0RF hydrocodone-acetaminophen 10-325 mg tablet 1 tablet PO Q6H PRN (Reason: pain) Qty: 120 0RF Hold Instructions: Order Change lisinopril 10 mg tablet See Rx Instructions .ROUTE .COMPLEX Qty: 90 1RF Dose Instruction: TAKE 1 TABLET BY MOUTH DAILY Rx Instructions: TAKE 1 TABLET BY MOUTH DAILY methimazole 10 mg tablet See Rx Instructions .ROUTE .COMPLEX Qty: 90 1RF Dose Instruction: TAKE ONE TABLET BY MOUTH DAILY Rx Instructions: TAKE ONE TABLET BY MOUTH DAILY Follow-up/Referrals: Gera Marquez MD [Primary Care Provider] - Quality HEART score for chest pain patients History: slightly suspicious ECG: normal Age: > 45 and < 65 years Risk factors: 1 or 2 risk factors Troponin: < or = to 1x normal limit Heart score: 2
[2024-03-26] MEDS: SODIUM CHLORIDE 0.9% IV 1,000 ML 999 ML IV CONT (09:09)
[2024-03-26] MEDS: ASPIRIN 81 MG CHEWABLE TABLET 324 MG PO (09:09)
[2024-03-26] MEDS: dilTIAZem HCl INJ 25 MG/5 ML VIAL 10 MG IV PUSH (09:10)
[2024-03-26] MEDS: dilTIAZem 100 MG/100 ML 100 MG/100 ML BAG IV CONT (09:10)
[2024-03-26 09:13] LABS: Basophils Absolute Auto 0.1 K/mm3 (0.0-0.1); Eosinophils Absolute Auto 0.3 K/mm3 (0-0.3); Eosinophils Percent Auto 2.3 % (0-4.4); Hematocrit 48.6 % (42.0-52.0); Hemoglobin 15.6 g/dL (14.0-18.0); Immature Granulocyte Absolute 0.04 K/mm3 (0.00-0.031); Immature Granulocyte Percent A 0.3 % (0-0.5); Lymphocytes Absolute Auto 3.67 K/mm3 (0.9-3.2); Lymphocytes Percent Auto 27.4 % (18.3-44.2); Mean Corpuscular HGB Conc 32.1 g/dl (32-36); Mean Corpuscular Hemoglobin 27.6 pg (26-34); Mean Platelet Volume 10.4 fl (7.4-10.4); Monocytes Absolute Auto 1.5 K/mm3 (0.1-0.6); Monocytes Percent Auto 10.9 % (2.6-8.5); Neutrophils Absolute Auto 7.8 K/mm3 (1.3-6.7); Neutrophils Percent Auto 58.1 % (45.5-73.1); Platelet Count Result 412 k/mm3 (150-375); Red Blood Count 5.65 M/mm3 (4.6-6.20); Red Cell Distribution Width 14.3 % (11.5-14.5); White Blood Count 13.4 K/mm3 (4.5-10.0)
[2024-03-26 09:24] LABS: Alanine Aminotransferase 19 U/L (6-50); Albumin Level 4.7 g/dL (3.5-5.1); Alkaline Phosphatase 77 U/L (38-126); Anion Gap 15 mmol/L (4-12); Aspartate Amino Transferase 23 U/L (17-59); Bilirubin,Total 0.8 mg/dL (0.2-1.3); Blood Urea Nitrogen 17 mg/dL (9-20); Calcium 9.7 mg/dL (8.4-10.2); Carbon Dioxide 21 mmol/L (22-30); Chloride 104 mmol/L (98-107); Estimated CRCL calculation 98 ml/min; Estimated Glomerular Filt Rate > 60; Glucose 169 mg/dL (65-110); Lipase 34 U/L (23-300); Magnesium 1.7 mg/dL (1.6-2.3); Potassium 3.9 mmol/L (3.4-5.0); Sodium 140 mmol/L (137-145)
[2024-03-26 09:32] LABS: INR 1.2; Prothrombin Time 15.9 Seconds (11.1-14.7)
[2024-03-26 09:33] LABS: Partial Thromboplastin Time 30.7 Seconds (22.3-36.8)
[2024-03-26 09:35] LABS: Troponin I < 0.012 ng/mL (0.000-0.034)
[2024-03-26 09:50] LABS: Influenza A QL RT-PCR Negative (Negative); Influenza B QL RT-PCR Negative (Negative); RSV RNA, RT-PCR Negative (Negative); SARS-CoV-2 RNA PCR Negative (Negative)
[2024-03-26 11:18] LABS: Troponin I < 0.012 ng/mL (0.000-0.034)
--- NOTE | 2024-03-26 11:27 | ECG_ITS ---
Test Date: 2024-03-26 11:34:02 Measurements Intervals [place] Rate: 74 P: 24 ND: 162 QRS: -55 QRSD: 106 T: 32 QT: 359 QTc: 400 Interpretive Statements SINUS RHYTHM LEFT ANTERIOR FASCICULAR BLOCK CANNOT R/O SEPTAL INFARCT, AGE INDETERMINATE BASELINE ARTIFACT- I, II, III, AVR, AVL, AVF ABNORMAL ECG Compared to ECG 03/26/2024 08:51:51 ATRIAL FIBRILLATION NO LONGER PRESENT Electronically Signed On 03-26-2024 18:35:11 CRIMPING PRESS OPERATOR by Simone Jenkins D.O.
== END 2024-03-26 12:08 | disposition home or self-care (01) ==
PROVIDERS: Emergency Provider Emergency Medicine; PCP Family Medicine
DX: I48.91 Unspecified atrial fibrillation (principal); R07.89 Other chest pain; I10 Essential (primary) hypertension; E11.9 Type 2 diabetes mellitus without complications; E78.5 Hyperlipidemia, unspecified; E05.90 Thyrotoxicosis, unspecified without thyrotoxic crisis or storm; K21.9 Gastro-esophageal reflux disease without esophagitis; M86.9 Osteomyelitis, unspecified; Z79.01 Long term (current) use of anticoagulants; Z79.84 Long term (current) use of oral hypoglycemic drugs; Z79.899 Other long term (current) drug therapy; I49.3 Ventricular premature depolarization; I44.4 Left anterior fascicular block; R94.31 Abnormal electrocardiogram [ECG] [EKG]
CPT/HCPCS: 36415; 71045; 80053; 83690; 83735; 84443; 84484; 85025; 85610; 85730; 87637; 93005; 96365; 96366; 99284; A9270; J7030